=== PATIENT | male | born 1990 | race African-American/Black ===

== ENCOUNTER 2019-06-27 20:08 | Emergency (ER) | payer OTHER ==
[~2019-06-27] VITALS: Ht 177.8 cm; Wt 81.7 kg
[2019-06-27 20:57] LABS: ABSOLUTE NEUTROPHILS 2.4 thou/uL (1.4-8.2); EOSINOPHILS 2.7 % (0.0-3.0); HEMATOCRIT 41.3 % (42.0-52.0); HEMOGLOBIN 13.7 gm/dL (14.0-18.0); LYMPHOCYTES 43.4 % (24.0-44.0); MCH 30.2 pg (26.0-34.0); MCHC 33.2 g/dL (28.0-37.0); MCV 90.8 fL (80.0-100.0); MONOCYTES 7.9 % (1.0-8.0); PLATELET COUNT 291 thou/uL (150-400); RBC 4.55 mil/uL (4.50-6.00); RDW 13.2 % (10.5-14.5); WBC 5.3 thou/uL (4.0-11.0)
[2019-06-27 21:00] LABS: ANION GAP 12 mmol/L (7-16); BUN 14 mg/dL (7-18); CALCIUM 9.1 mg/dL (8.5-10.1); CHLORIDE 101 mmol/L (98-107); CO2 24 mmol/L (21-32); CREATININE 1.3 mg/dL (0.7-1.3); GLUCOSE 201 mg/dL (74-106); POTASSIUM 3.2 mmol/L (3.5-5.1); SODIUM 137 mmol/L (136-145)
[2019-06-27 21:07] LABS: ALBUMIN 3.8 g/dL (3.4-5.0); DIRECT BILIRUBIN < 0.1 mg/dL (<0.1-0.2); LIPASE 76 U/L (73-393); SGOT 21 U/L (15-37); SGPT 44 U/L (30-65); TOTAL BILIRUBIN 0.2 mg/dL (<0.1-1.0); TOTAL PROTEIN 7.2 g/dL (6.4-8.2)
[2019-06-27] MEDS ORDERED: ZOFRAN ODT4 MG PO (22:45)
[2019-06-27 22:55] VITALS: BP 139/87
[2019-06-27 23:05] LABS: URINE BILIRUBIN NEGATIVE (Negative); URINE BLOOD NEGATIVE (Negative); URINE CLARITY CLEAR; URINE COLOR YELLOW; URINE GLUCOSE-RANDOM* NEGATIVE (Negative); URINE KETONES NEGATIVE (Negative); URINE LEUKOCYTES-REFLEX NEGATIVE (Negative); URINE NITRITE-REFLEX NEGATIVE (Negative); URINE PROTEIN (DIPSTICK) NEGATIVE (Negative); URINE SPECIFIC GRAVITY >= 1.030 (1.005-1.035); URINE UROBILINOGEN 0.2 E.U./dl (0.2-1.0)
--- NOTE | 2019-06-28 16:22 | EKG ---
[place] [address] [employer] [address] [place] [address] ELECTROCARDIOGRAM REPORT Name: MARTHA STERN Room #: DEP ANDERSON Whalen#: [id number] Admission: 06/27/19 Attend Phys: Discharge: 06/27/19 Date of : [birth year] Report #: [id number] THIS REPORT FOR: //name// [facility] ED Test Date: 2019-06-27 Test Time: 20:27:52 Pat Name: MARTHA STERN Department: Room: Gender: M Pace Analyst: DIAMOND : 1990 Requested By: Greg Lee Order Number: [id number] MD: Rafael Olguin Measurements Intervals [place] Rate: 118 P: 48 NC: 174 QRS: 43 QRSD: 94 T: 37 QT: 317 QTc: 445 Interpretive Statements Sinus tachycardia left atrial enlargement RSR' in V1 or V2, probably normal variant Nonspecific ST-T wave changes No previous ECG available for comparison Electronically Signed On 06-28-2019 16:21:51 [employer] by Rafael Olguin [email or web address] <ELECTRONICALLY SIGNED> By: Rafael Olguin MD 06/28/19 1621 26 26 Rafael Olguin MD /BEL
== END 2019-06-27 22:57 | disposition home or self-care (01) ==
LOC: ER 20:08
PROVIDERS: Emergency Medicine
DX: R19.7 Diarrhea, unspecified (principal); R42 Dizziness and giddiness; R11.0 Nausea